=== PATIENT | male | born 1955 | race Caucasian/White ===

== ENCOUNTER 2020-10-12 07:17 | Day surgery (SDC) | payer OTHER ==
[2020-10-12] MEDS ORDERED: Ringers Lactate 1,000 ML IV ONE (07:51)
[2020-10-12] MEDS ORDERED: NA CHLORIDE 0.9% 1,000 ML ONE ×2 (07:55→11:13)
[2020-10-12] MEDS ORDERED: propofoL 200 MG/20 ML VIAL IV ONE (09:11)
[2020-10-12] MEDS ORDERED: MIDAZOLAM HCL 2 MG/2 ML INJ ONE (09:12)
[2020-10-12] MEDS ORDERED: LIDOCAINE 1% MPF 5 ML VIAL ONE (09:12)
--- NOTE | 2020-10-12 11:01 | ENDO RPT ---
[address], [address] COLONOSCOPY PROCEDURE REPORT EXAM DATE: 10/12/2020 PATIENT NAME: Yobani Washburn MR #: [id number] BIRTHDATE: 1955 ATTENDING: Mitch Duggan DR STATUS: outpatient ENTRY CLERK: Ricardo Fragoso CST and Pia James RN INDICATIONS: The patient is a 65 yr old Male here for a colonoscopy due to colon cancer screening PROCEDURE PERFORMED: Colonoscopy with biopsy - cold polypectomy MEDICATIONS: Per Anesthesia. ESTIMATED BLOOD LOSS: None CONSENT: The patient understands the risks and benefits of the procedure and understands that these risks include, but are not limited to: sedation, allergic reaction, infection, perforation and/or bleeding. Alternative means of evaluation and treatment include, among others: physical exam, x-rays, and/or surgical intervention. The patient elects to proceed with this endoscopic procedure. DESCRIPTION OF PROCEDURE: During intra-op preparation period all mechanical medical equipment was checked for proper function. Hand hygiene and appropriate measures for infection prevention was taken. Procedure, possible complications, alternatives including, but not limited to possibility of bleeding, perforation, tear, infection, sepsis, need for surgery, need for blood transfusion, were explained to the patient. After the risks, benefits and alternatives of the procedure were thoroughly explained, Informed consent was verified, confirmed and timeout was successfully executed by the treatment team. The patient was placed in the left lateral position. A digital rectal exam was performed and revealed an enlarged prostate, A digital rectal exam was performed and revealed internal hemorrhoids, and A digital rectal exam was performed and revealed external hemorrhoids. After appropriate level of anesthesia, the scope was passed. The EC-[id number] ([id number]) endoscope was introduced through the anus and advanced to the cecum, which was identified by both the appendix and ileocecal valve. The quality of the prep was fair. The instrument was then slowly withdrawn as the colon was fully examined. Scope withdrawal time was 12 minutes. COLON FINDINGS: Mild diverticulosis was noted in the sigmoid colon. No bleeding was noted from the diverticulosis. Two small smooth sessile polyps, ranging between 3-5mm in size, with friable surfaces were found in the sigmoid colon. A polypectomy was performed with cold forceps. The resection was complete, the polyp tissue was completely retrieved and sent to histology. Small internal and external hemorrhoids were found. Retroflexed views revealed no abnormalities. The scope was then completely withdrawn from the patient and the procedure terminated. ADVERSE EVENTS: There were no complications. IMPRESSIONS: 1. Mild diverticulosis was noted in the sigmoid colon 2. Two small sessile polyps, ranging between 3-5mm in size, were found in the sigmoid colon; polypectomy was performed with cold forceps 3. Small internal and external hemorrhoids RECOMMENDATIONS: 1. avoid NSAIDS for 2 weeks 2. await biopsy results 3. follow-up: office 2 week(s) 4. Monitor for any evidence of rectal bleeding. 5. hemorrhoidal hygiene 6. yearly hemoquant RECALL: for Colonoscopy, pending biopsy results. Mitch Duggan DR eSigned: Mitch Duggan DR 10/12/2020 11:01 AM cc: CPT CODES: ICD9 CODES: PATIENT NAME: Yobani Washburn MR#: [id number]
[2020-10-12 12:04] VITALS: TEMP 97
[2020-10-12 12:06] VITALS: BP 129/77; O2SAT 98
== END 2020-10-12 11:30 | disposition home or self-care (01) ==
LOC: OR 07:17
PROVIDERS: ATTEND Surgery
PROC: 0DBN8ZX Excision of Sigmoid Colon, Via Natural or Artificial Opening Endoscopic, Diagnostic (ICD-10-PCS; principal; 2020-10-12 08:30)
DX: K63.5 Polyp of colon (principal); K59.00 Constipation, unspecified; K64.4 Residual hemorrhoidal skin tags; K64.8 Other hemorrhoids; K57.30 Diverticulosis of large intestine without perforation or abscess without bleeding; Z20.822 Contact with and (suspected) exposure to COVID-19
CPT/HCPCS: 36415; 84132; 82947; 88305; 45380; U0003; J2704; J2250; J7120; J7030 ×2

== ENCOUNTER → 2023-08-08 | Emergency (ER) | payer OTHER ==
--- NOTE | 2023-08-08 08:51 | EDPHYS ---
Physician Documentation [facility] Name: Yobani Washburn Age: 67 yrs Sex: Male : 1955 Arrival Date: 08/08/2023 Time: 07:32 Bed 19 Private MD: ED Physician James Richmond HPI: 08/08 08:32 This 67 yrs old Male presents to ER via Ambulatory with complaints of Eye tari Problem. Historical: - Allergies: 07:47 Lyrica; hb - Home Meds: 07:48 metformin 1 Oral tab [Active]; metoprolol tartrate 100 mg Oral tab [Active]; hb - PMHx: 07:47 Diabetes - NIDDM; High Cholesterol; Hypertension; hb - Immunization history:: Adult Immunizations up to date. - Social history:: Smoking status: Patient denies any tobacco usage or history of. ROS: 08:41 Constitutional: Negative for fever, chills, and weight loss, ENT: Negative for injury, tari pain, and discharge, Neck: Negative for injury, pain, and swelling, Cardiovascular: Negative for chest pain, palpitations, and edema, Respiratory: Negative for shortness of breath, cough, wheezing, and pleuritic chest pain, Abdomen/GI: Negative for abdominal pain, nausea, vomiting, diarrhea, and constipation, Back: Negative for injury and pain, : Negative for injury, bleeding, discharge, and swelling, MS/Extremity: Negative for injury and deformity, Skin: Negative for injury, rash, and discoloration, Neuro: Negative for headache, weakness, numbness, tingling, and seizure, Psych: Negative for depression, anxiety, suicide ideation, homicidal ideation, and hallucinations, Allergy/Immunology: Negative for hives, rash, and allergies, Endocrine: Negative for neck swelling, polydipsia, polyuria, polyphagia, and marked weight changes, Hematologic/Lymphatic: Negative for swollen nodes, abnormal bleeding, and unusual bruising, 08:41 Eyes: Positive for pain, redness, swelling, of the outer aspect of conjuctiva of left eye, Exam: 08:41 Constitutional: This is a well developed, well nourished patient who is awake, alert, tari and in no acute distress. Head/Face: Normocephalic, atraumatic. ENT: Nares patent. No nasal discharge, no septal abnormalities noted. Tympanic membranes are normal and external auditory canals are clear. Oropharynx with no redness, swelling, or masses, exudates, or evidence of obstruction, uvula midline. Mucous membranes moist. Neck: Trachea midline, no thyromegaly or masses palpated, and no cervical lymphadenopathy. Supple, full range of motion without nuchal rigidity, or vertebral point tenderness. No Meningismus. Chest/axilla: Normal chest wall appearance and motion. Nontender with no deformity. No lesions are appreciated. Cardiovascular: Regular rate and rhythm with a normal S1 and S2. No gallops, murmurs, or rubs. Normal PMI, no JVD. No pulse deficits. Respiratory: Lungs have equal breath sounds bilaterally, clear to auscultation and percussion. No rales, rhonchi or wheezes noted. No increased work of breathing, no retractions or nasal flaring. Abdomen/GI: Soft, non-tender, with normal bowel sounds. No distension or tympany. No guarding or rebound. No evidence of tenderness throughout. Back: No spinal tenderness. No costovertebral tenderness. Full range of motion. Male : Normal genitalia with no discharge or lesions. Skin: Warm, dry with normal turgor. Normal color with no rashes, no lesions, and no evidence of cellulitis. MS/ Extremity: Pulses equal, no cyanosis. Neurovascular intact. Full, normal range of motion. Neuro: Awake and alert, GCS 15, oriented to person, place, time, and situation. Cranial nerves II-XII grossly intact. Motor strength 5/5 in all extremities. Sensory grossly intact. Cerebellar exam normal. Normal gait. Psych: Awake, alert, with orientation to person, place and time. Behavior, mood, and affect are within normal limits. 08:41 Eyes: Periorbital structures: appear normal, no acute changes, Pupils: no acute changes, equal, round, and reactive to light and accomodation, Extraocular movements: no acute changes, Conjunctiva: injected, Corneas: are normal, no evidence of abrasion, no foreign body, no acute changes, no evidence of abrasion, no foreign body, Sclera: swelling and edema, Anterior chamber: normal, Lids and lashes: appear normal, Visual tafoya: are intact, no acute changes, Vital Signs: 07:46 BP 149 / 76; Pulse 77; Resp 16; Temp 98.1; Pulse Ox 99% on R/A; Weight 90.72 kg (M); hb Height 5 ft. 9 in. ; Pain 8/10; 07:46 Body Mass Index 29.53 (90.72 kg, 175.26 cm) hb 07:46 Pain Scale: Adult hb MDM: 07:36 Patient medically screened. tari 08:41 Differential diagnosis: Corneal abrasion of Corneal ulcer of Foreign body in Acute tari iritis of Acute glaucoma in Ultraviolet keratitis in. Data reviewed: vital signs, nurses notes. Consideration of Admission/Observation Escalation of care including admission/observation considered. I considered the following discharge prescriptions or medication management in the emergency department Medications were administered in the Emergency Department. See MAR. Test considered but Not performed: Labs: no labs. Historians other than the Patient: patient well informed. Care significantly affected by the following chronic conditions: Diabetes, Hypertension, increase cholesterol. Administered Medications: No medications were administered Disposition Summary: 08/08/23 08:50 Discharge Ordered Notes: Location: Home tari Problem: new tari Symptoms: have improved tari Condition: Stable tari Diagnosis - Cough tari - Unspecified episcleritis, left eye tari - Type 2 diabetes mellitus with hyperosmolarity tari Followup: tari - With: Bernardo Maria MD - When: 2 - 3 days - Reason: Recheck today's complaints, Continuance of care, Re-evaluation by your physician Discharge Instructions: - Discharge Summary Sheet tari - Scleritis and Episcleritis tari - Cough, Adult tari - Type 2 Diabetes Mellitus, Self-Care, Adult tari Forms: - Medication Reconciliation Form [facility] - Thank You Letter [facility] - Antibiotic Education tari - Prescription Opioid Use tari - Patient Portal Instructions [facility] - Leadership Thank You Letter [facility] Prescriptions: - Tessalon Perles 100 mg Oral capsule - take 2 capsule ORAL route every 8 hours As needed; 30 capsule; Refills: 0, tari Product Selection Permitted - Zithromax Z-Alton 250 mg Oral Tablet - take 1 tablet ORAL route as directed for 5 days Day 1 - take two (2) tablets tari one time. Day 2, 3, 4 , 5 take one (1) tablet once daily.; 6 tablet; Refills: 0, Product Selection Permitted - Guaifenesin AC 10-100 mg/5 mL Oral liquid - take 10 milliliters ORAL route every 6 hours As needed; 160 milliliter; tari Refills: 0, Product Selection Permitted Signatures: James Richmond MD MD cha Baxter, Heather, RN RN hb Corrections: (The following items were deleted from the chart) 08:53 08:50 Anterior scleritis, left eye tari marc
--- NOTE | 2023-08-08 08:51 | ER ---
Nurse's Notes [facility] Name: Yobani Washburn Age: 67 yrs Sex: Male : 1955 Arrival Date: 08/08/2023 Time: 07:32 Bed 19 Private MD: Diagnosis: Cough;Unspecified episcleritis, left eye;Type 2 diabetes mellitus with hyperosmolarity Presentation: 08/08 07:46 Chief complaint: Left eye pain and redness x 6 weeks. Coronavirus screen: At this time, hb the client does not indicate any symptoms associated with coronavirus-19. Ebola Screen: No symptoms or risks identified at this time. Initial Sepsis Screen: Does the patient meet any 2 criteria? No. Patient's initial sepsis screen is negative. Does the patient have a suspected source of infection? No. Patient's initial sepsis screen is negative. Risk Assessment: Do you want to hurt yourself or someone else? Patient reports no desire to harm self or others. Onset of symptoms was June 2023. 07:46 Method Of Arrival: Ambulatory hb 07:46 Acuity: MALLORIE 4 hb Historical: - Allergies: 07:47 Lyrica; hb - Home Meds: 07:48 metformin 1 Oral tab [Active]; metoprolol tartrate 100 mg Oral tab [Active]; hb - PMHx: 07:47 Diabetes - NIDDM; High Cholesterol; Hypertension; hb - Immunization history:: Adult Immunizations up to date. - Social history:: Smoking status: Patient denies any tobacco usage or history of. Screenin:30 [facility] ED Fall Risk Assessment (Adult) Score/Fall Risk Level 0 - 2 = Low Risk hb Oriented to surroundings, Maintained a safe environment, Educated pt \T\ family on fall prevention, incl call for assistance when getting out of bed. Abuse screen: Denies threats or abuse. Denies injuries from another. Nutritional screening: No deficits noted. Tuberculosis screening: No symptoms or risk factors identified. Assessment: 08:30 General: Appears in no apparent distress. Behavior is calm, cooperative. Pain: Pain hb currently is 8 out of 10 on a pain scale. Neuro: Level of Consciousness is awake, alert, obeys commands, Oriented to person, place, time, situation. Cardiovascular: Patient's skin is warm and dry. Respiratory: Respiratory effort is even, unlabored, Respiratory pattern is regular, symmetrical. GI: No signs and/or symptoms were reported involving the gastrointestinal system. : No signs and/or symptoms were reported regarding the genitourinary system. EENT: Reports left eye pain and redness. Derm: Skin is pink, warm \T\ dry. Musculoskeletal: No signs and/or symptoms reported regarding the musculoskeletal system. Vital Signs: 07:46 BP 149 / 76; Pulse 77; Resp 16; Temp 98.1; Pulse Ox 99% on R/A; Weight 90.72 kg (M); hb Height 5 ft. 9 in. ; Pain 8/10; 07:46 Body Mass Index 29.53 (90.72 kg, 175.26 cm) hb 07:46 Pain Scale: Adult hb ED Course: 07:35 Patient arrived in ED. gm2 07:36 James Richmond MD is Attending Physician. tari 07:47 Triage completed. hb 08:09 Romana Cheng, RN is Primary Nurse. ko1 08:30 Patient has correct armband on for positive identification. Provided Education on: . hb 08:30 No provider procedures requiring assistance completed. Patient did not have IV access hb during this emergency room visit. 08:48 Arm band placed on. hb 08:49 Bernardo Maria MD is Referral Physician. tari Administered Medications: No medications were administered Medication: 08:30 VIS not applicable for this client. hb Outcome: 08:50 Discharge ordered by . tari 09:16 Patient left the ED. hb Signatures: James Richmond MD MD cha Baxter, Heather RN SIVA Romana Cheng, RN RN ko1 Rashmi Cameron gm2
[2023-08-08 09:29] VITALS: BP 149/76; TEMP 98.1; O2SAT 99
== END ==
LOC: ER 07:32
DX: H15.102 Unspecified episcleritis, left eye (principal); R05.9 Cough, unspecified; E11.00 Type 2 diabetes mellitus with hyperosmolarity without nonketotic hyperglycemic-hyperosmolar coma (NKHHC); I10 Essential (primary) hypertension; Z88.8 Allergy status to other drugs, medicaments and biological substances
CPT/HCPCS: 99281

== ENCOUNTER 2024-04-02 19:38 | Emergency (ER) | payer OTHER ==
[2024-04-02] MEDS ORDERED: FAMOTIDINE 20 MG/2 ML VIAL IV ONE (19:58)
[2024-04-02] MEDS ORDERED: NA CHLORIDE 0.9% 2,000 ML ONE (19:58)
[2024-04-02 20:23] LABS: Absolute Basophils 0.1 K/uL (0-0.5); Absolute Eosinophils 0.2 K/uL (0-0.5); Absolute Lymphocytes (CBC) 0.9 K/uL (0.7-4.9); Absolute Monocytes 1.5 K/uL (0.1-1.3); Absolute Neutrophil 14.2 K/uL (1.8-8.0); Basophils % 0.3 % (0-1.3); Eosinophils % 1.4 % (0-4.4); Hematocrit 36.6 % (39.6-49.0); Hemoglobin 12.2 g/dL (13.6-17.9); Lymphocytes % 5.4 % (15.3-44.8); MCH 29.1 pg (27.0-35.0); MCHC 33.4 g/dL (32.0-36.0); MCV 87.1 fL (80-100); MPV 7.4 fL (7.6-11.3); Monocytes % 8.7 % (3.3-12.3); Neutrophils % 84.2 % (41.7-73.7); Platelets 255 thou/uL (152-406); RBC Red Blood Cell Count 4.21 M/uL (4.33-5.43); Red Cell Distribution Width 14.6 % (12.1-15.2)
[2024-04-02 20:28] LABS: PT Prothrombin Time 13.2 SECONDS (9.4-12.5); Protime INR 1.18
--- NOTE | 2024-04-02 20:33 | RAD REPORT ---
EXAMINATION: ONE VIEW CHEST XR CLINICAL INDICATION: COUGH TECHNIQUE: Frontal chest projection is submitted. Examination is limited by patient positioning and t echnique. COMPARISON: 11/16/2015 FINDINGS: The lungs are well inflated and clear. The heart is normal in size. No displaced fractures identified . Sternotomy wires. IMPRESSION: No acute intrathoracic abnormalities.
[2024-04-02 20:41] LABS: Albumin 2.9 g/dL (3.4-5.0); Albumin/Globulin Ratio 0.9 (1.1-1.8); Anion Gap 9.6 mEq/L (5.0-15.0); Bilirubin Direct 0.3 mg/dL (0-0.2); Bilirubin Indirect, Calculated 0.6 mg/dL (0.2-0.8); Bilirubin Total 0.9 mg/dL (0.2-1.0); Globulin 3.1 g/dL (2.3-3.5); Potassium 4.6 mEq/L (3.5-5.1); Troponin High Sensitivity 7.6 pg/mL (<58.9)
[2024-04-02] MEDS ORDERED: Meropenem 1000 MG/VIAL IV ONE (21:05)
[2024-04-02] MEDS ORDERED: NA CHLORIDE 0.9% 250 ML ONE (21:05)
[2024-04-02] MEDS ORDERED: VANCOMYCIN 1 GM/VIAL ONE (21:05)
[2024-04-02] MEDS ORDERED: NA CHLORIDE 0.9% 100 ML ONE (21:06)
--- NOTE | 2024-04-02 21:12 | ER ---
Nurse's Notes [facility] Name: Yobani Washburn Age: 68 yrs Sex: Male : 1955 Arrival Date: 04/02/2024 Time: 19:38 Bed 2 Private MD: Diagnosis: Weakness;Elevated white blood cell count;Type 2 diabetes mellitus with hyperglycemia;Low back pain-SP FUSION L4-5;Hypotension, unspecified;Other retention of urine;UTI/ Urinary tract infection, site not specified-AIR IN BLADDER;Acute kidney failure, unspecified Presentation: 04/02 19:51 Chief complaint: Patient's son or daughter states: DC from [facility] post lg3 spine SX today. got home and took norco 7.5 and tizanidine 4mg and became lethargic. EMS administered 1mg Narcan. Pt AAOx4 on arrival. Coronavirus screen: Client denies travel out of the [place] in the last 14 days. At this time, the client does not indicate any symptoms associated with coronavirus-19. Ebola Screen: No symptoms or risks identified at this time. Initial Sepsis Screen: Does the patient meet any 2 criteria? No. Patient's initial sepsis screen is negative. Does the patient have a suspected source of infection? No. Patient's initial sepsis screen is negative. Risk Assessment: Do you want to hurt yourself or someone else? Patient reports no desire to harm self or others. Onset of symptoms was April 02, 2024. 19:51 Method Of Arrival: EMS: [facility] 3 19:51 Acuity: MALLORIE 3 lg3 Triage Assessment: 19:55 General: Appears in no apparent distress. comfortable, Behavior is calm, cooperative. lg3 Pain: Denies pain. EENT: No deficits noted. No signs and/or symptoms were reported regarding the EENT system. Neuro: No deficits noted. Walsh Agitation-Sedation Scale (RASS): 0 - Alert and Calm Level of Consciousness is awake, alert, obeys commands, Oriented to person, place, time, situation. Cardiovascular: No deficits noted. Denies chest pain, shortness of breath, Capillary refill < 3 seconds Clubbing of nail beds is absent JVD is absent Patient's skin is warm and dry. Respiratory: No deficits noted. Airway is patent Respiratory effort is even, unlabored, Respiratory pattern is regular, symmetrical. GI: No deficits noted. No signs and/or symptoms were reported involving the gastrointestinal system. : No deficits noted. No signs and/or symptoms were reported regarding the genitourinary system. Derm: Skin is intact, is healthy with good turgor, Skin is dry, Skin is pale, Skin temperature is warm. Musculoskeletal: No deficits noted. Circulation, motion, and sensation intact. Range of motion: intact in all extremities. Historical: - Allergies: 19:55 Lyrica; lg3 - PMHx: 19:55 Diabetes - NIDDM; High Cholesterol; Hypertension; spine (Hypertension); lg3 - PSHx: 19:55 triple bipass (Hypertension); spinal (Hypertension); lg3 - Immunization history:: Adult Immunizations up to date. - Infectious Disease History:: Denies. - Social history:: Smoking status: Patient denies any tobacco usage or history of. Patient/guardian denies using alcohol, street drugs. - Family history:: not pertinent. Screenin:26 [facility] ED Fall Risk Assessment (Adult) History of falling in the last 3 months, cm10 including since admission No falls in past 3 months (0 pts) Confusion or Disorientation No (0 pts) Intoxicated or Sedated No (0 pts) Impaired Gait Yes (1 pt) Mobility Assist Device Used Yes (1 pt) Altered Elimination No (0 pt) Score/Fall Risk Level 0 - 2 = Low Risk Oriented to surroundings, Maintained a safe environment, Hourly rounding (assess needs \T\ fall precautionary measures) done. Abuse screen: Denies threats or abuse. Denies injuries from another. Nutritional screening: No deficits noted. Tuberculosis screening: No symptoms or risk factors identified. Assessment: 20:26 General: Appears in no apparent distress. comfortable, Behavior is calm, cooperative. cm10 Neuro: No deficits noted. Level of Consciousness is awake, alert, obeys commands, Oriented to person, place, time, situation, Appropriate for age. Respiratory: No deficits noted. Airway is patent Respiratory effort is even, unlabored, Respiratory pattern is regular, symmetrical. 22:00 Reassessment: Patient appears in no apparent distress at this time. No changes from cp4 previously documented assessment. Patient and/or family updated on plan of care and expected duration. Pain level reassessed. Patient is alert, oriented x 3, equal unlabored respirations, skin warm/dry/pink. 23:00 Reassessment: Patient appears in no apparent distress at this time. Patient and/or cp4 family updated on plan of care and expected duration. Pain level reassessed. Patient is alert, oriented x 3, equal unlabored respirations, skin warm/dry/pink. 04/03 00:00 Reassessment: Patient appears in no apparent distress at this time. Patient and/or cp4 family updated on plan of care and expected duration. Pain level reassessed. Patient is alert, oriented x 3, equal unlabored respirations, skin warm/dry/pink. 01:00 Reassessment: Patient appears in no apparent distress at this time. Patient and/or cp4 family updated on plan of care and expected duration. Pain level reassessed. Patient is alert, oriented x 3, equal unlabored respirations, skin warm/dry/pink. 01:17 General: Romana- [phone]. lg3 02:00 Reassessment: Patient appears in no apparent distress at this time. Patient and/or cp4 family updated on plan of care and expected duration. Pain level reassessed. Patient is alert, oriented x 3, equal unlabored respirations, skin warm/dry/pink. 03:00 Reassessment: Patient appears in no apparent distress at this time. Patient and/or cp4 family updated on plan of care and expected duration. Pain level reassessed. Patient is alert, oriented x 3, equal unlabored respirations, skin warm/dry/pink. Vital Signs: 04/02 19:51 BP 93 / 48; Pulse 82; Resp 17 S; Temp 98.2(O); Pulse Ox 98% on R/A; Weight 80.74 kg; lg3 Height 5 ft. 9 in. (R); Pain 0/10; 21:23 BP 110 / 58; Pulse 79; Resp 18; Pulse Ox 99% ; cm10 22:31 BP 116 / 62; Pulse 86; Resp 16; Pulse Ox 96% ; cp4 23:30 BP 115 / 61; Pulse 83; Resp 18; Pulse Ox 96% ; cp4 04/03 00:00 BP 117 / 61; Pulse 82; Resp 18; Pulse Ox 96% ; cp4 01:00 BP 128 / 66; Pulse 83; Resp 18; Pulse Ox 96% ; cp4 02:00 BP 124 / 67; Pulse 77; Resp 18; Pulse Ox 96% ; cp4 03:22 BP 119 / 68; Pulse 81; Resp 18; Pulse Ox 96% ; cp4 04/02 19:51 Body Mass Index 26.29 (80.74 kg, 175.26 cm) lg3 04/02 19:51 Pain Scale: Adult 3 ED Course: 04/02 19:42 Patient arrived in ED. vk 19:45 James Richmond MD is Attending Physician. tari 19:55 Triage completed. lg3 19:55 Arm band placed on right wrist. lg3 20:10 Inserted saline lock: 20 gauge in right antecubital area, using aseptic technique. cm10 Blood collected. Flushed with 10 mL NS Maintain EMS IV. Dressing intact. Good blood return noted. Site clean \T\ dry. Gauge \T\ site: 18g left forearm. 20:10 Initial lab(s) drawn, by me, sent to lab. First set of blood cultures drawn by me. cm10 20:19 EKG done, by ED staff, reviewed by James Richmond MD. oe 20:26 Patient has correct armband on for positive identification. Bed in low position. Call cm10 light in reach. Side rails up X2. Provided Education on: ER process and procedures.. Client placed on continuous cardiac and pulse oximetry monitoring. NIBP monitoring applied. monitoring and evaluation advisor on. 20:29 XRAY Chest (1 view) In Process Unspecified. EDMS 20:[address] via stretcher. cm10 21:08 initiated transfer with [facility] spoke with Amy . vk 21:14 CT Chest Abdomen Pelvis W/O Contrast In Process Unspecified. EDMS 21:15 Patient moved back from CT. cm10 21:18 Second set of blood cultures drawn by me. cm10 21:18 T\T\S collected, blood band applied to patient. cm10 21:53 Jensen cath inserted, using sterile technique, 16 Fr., by me, balloon inflated, to cm10 gravity drainage, urine specimen collected. Patient tolerated well. 22:02 called [facility] for patient placement spoke with tanja stated that they are waiting assistant golf professional vk back from Dr. Nova. 22:08 Sharda Vazquez is Primary Nurse. cp4 22:43 spoke with Amy from [facility] asked to fax all clinical's stated they are waiting for bed. vk 23:55 patient not accepted to [facility] NOE Villegas. vk 04/03 00:16 initiated transfer with [facility] spoke with Isabella. vk 01:31 declined patient transfer per Isabella. vk 02:00 initiated transfer with [facility] lisa spoke with Emilie. vk 02:28 Patient was accepted to [facility] Lisa to [id number] Danita dyson. vk 03:00 initiated transport with EMS spoke with xiao CERDA 15/20 mins. vk 03:13 EMS picked up patient at [id number]. vk 03:25 No provider procedures requiring assistance completed. Patient transferred, IV remains cp4 in place. Administered Medications: 04/02 20:20 Drug: Famotidine IVP 20 mg IVP once; dilute with 10 mL 0.9% NaCl; give over 2 minutes cm10 Route: IVP; Site: right antecubital; 21:09 Follow up: Response: No adverse reaction cm10 20:21 Drug: NS 0.9% IV 1000 ml IV at 1 bolus Per protocol; to be given as a bolus over 60 cm10 minutes Route: IV; Rate: 1 bolus; Site: right antecubital; 22:03 Follow up: Response: No adverse reaction; IV Status: Completed infusion; IV Intake: cm10 1000ml 20:21 Drug: NS 0.9% IV 1000 ml IV at 1 bolus Per protocol; to be given as a bolus over 60 cm10 minutes Route: IV; Rate: 1 bolus; Site: right antecubital; 22:03 Follow up: Response: No adverse reaction; IV Status: Completed infusion; IV Intake: cm10 1000ml 21:22 Drug: Meropenem IV 1 grams IV at per protocol once; (mix in NS 100 mL) Route: IV; Rate: cm10 per protocol; Site: right antecubital; 22:27 Follow up: IV Status: Completed infusion cp4 21:52 Drug: Viscous Lidocaine Mucous Membrane Liquid (4 %) 5 ml Mucous Membrane once; to cm10 bedside Route: Mucous Membrane; 22:27 Drug: vancoMYCIN IVPB 1 grams IVPB once over 2 hrs Route: IVPB; Infused Over: 2 hrs; cp4 Site: right antecubital; 04/03 00:49 Follow up: Response: No adverse reaction; IV Status: Completed infusion cp4 Medication: 04/02 20:26 VIS not applicable for this client. cm10 Intake: 22:03 IV: 1000ml; Total: 1000ml. cm10 22:03 IV: 1000ml; Total: 2000ml. cm10 Outcome: 21:11 ER care complete, transfer ordered by . tari 04/03 03:24 Transferred by ground EMS Transfer form completed. X-rays sent w/ patient. Note: [facility] cp4 [place] Condition: stable Instructed on the need for transfer, 03:28 Patient left the ED. cp4 Signatures: Dispatcher [employer] EDJames Richards MD MD cha Espinosa, Orlando oe Able, Lacie RN RN lg3 Daina River RN RN cm10 Sharda Vazquez cp4 Yovana Sears Corrections: (The following items were deleted from the chart) 02:55 00:00 BP 128 / 66; Pulse 83bpm; Resp 18bpm; Pulse Ox 96%; cp4 cp4 03:24 02:37 Reassessment: cp4 cp4
--- NOTE | 2024-04-02 21:12 | EDPHYS ---
Physician Documentation [facility] Name: Yobani Washburn Age: 68 yrs Sex: Male : 1955 Arrival Date: 04/02/2024 Time: 19:38 Bed 2 Private MD: ED Physician James Richmond HPI: 04/02 19:54 This 68 yrs old Male presents to ER via Unassigned with complaints of weak, tari shaking, sp back surgery. 19:54 The patient presents with pain that is acute, and tenderness, sp fusion. The symptoms tari are located in the low back, lumbar area. Onset: The symptoms/episode began/occurred just prior to arrival. The pain does not radiate. Associated signs and symptoms: Pertinent positives: weakness. The problem was sustained from unknown cause. Modifying factors: The patient symptoms are alleviated by nothing, the patient symptoms are aggravated by movement. took pain pill, mr got weakness. Severity of symptoms: At their worst the symptoms were moderate in the emergency department the symptoms are unchanged. Historical: - Allergies: 19:55 Lyrica; lg3 - PMHx: 19:55 Diabetes - NIDDM; High Cholesterol; Hypertension; spine (Hypertension); lg3 - PSHx: 19:55 triple bipass (Hypertension); spinal (Hypertension); lg3 - Immunization history:: Adult Immunizations up to date. - Infectious Disease History:: Denies. - Social history:: Smoking status: Patient denies any tobacco usage or history of. Patient/guardian denies using alcohol, street drugs. - Family history:: not pertinent. ROS: 19:54 Constitutional: Negative for fever, chills, and weight loss, Eyes: Negative for injury, tari pain, redness, and discharge, ENT: Negative for injury, pain, and discharge, Neck: Negative for injury, pain, and swelling, Cardiovascular: Negative for chest pain, palpitations, and edema, Respiratory: Negative for shortness of breath, cough, wheezing, and pleuritic chest pain, Abdomen/GI: Negative for abdominal pain, nausea, vomiting, diarrhea, and constipation, : Negative for injury, bleeding, discharge, and swelling, MS/Extremity: Negative for injury and deformity, Skin: Negative for injury, rash, and discoloration, Neuro: Negative for headache, weakness, numbness, tingling, and seizure, Psych: Negative for depression, anxiety, suicide ideation, homicidal ideation, and hallucinations, Allergy/Immunology: Negative for hives, rash, and allergies, Endocrine: Negative for neck swelling, polydipsia, polyuria, polyphagia, and marked weight changes, Hematologic/Lymphatic: Negative for swollen nodes, abnormal bleeding, and unusual bruising, 19:54 Back: Positive for injury or acute deformity, decreased range of motion, pain at rest, pain with movement, of the lumbar area, Exam: 19:54 Constitutional: This is a well developed, well nourished patient who is awake, alert, tari and in no acute distress. Head/Face: Normocephalic, atraumatic. Eyes: Pupils equal round and reactive to light, extra-ocular motions intact. Lids and lashes normal. Conjunctiva and sclera are non-icteric and not injected. Cornea within normal limits. Periorbital areas with no swelling, redness, or edema. ENT: Nares patent. No nasal discharge, no septal abnormalities noted. Tympanic membranes are normal and external auditory canals are clear. Oropharynx with no redness, swelling, or masses, exudates, or evidence of obstruction, uvula midline. Mucous membranes moist. Neck: Trachea midline, no thyromegaly or masses palpated, and no cervical lymphadenopathy. Supple, full range of motion without nuchal rigidity, or vertebral point tenderness. No Meningismus. Chest/axilla: Normal chest wall appearance and motion. Nontender with no deformity. No lesions are appreciated. Cardiovascular: Regular rate and rhythm with a normal S1 and S2. No gallops, murmurs, or rubs. Normal PMI, no JVD. No pulse deficits. Respiratory: Lungs have equal breath sounds bilaterally, clear to auscultation and percussion. No rales, rhonchi or wheezes noted. No increased work of breathing, no retractions or nasal flaring. Abdomen/GI: Soft, non-tender, with normal bowel sounds. No distension or tympany. No guarding or rebound. No evidence of tenderness throughout. Male : Normal genitalia with no discharge or lesions. Skin: Warm, dry with normal turgor. Normal color with no rashes, no lesions, and no evidence of cellulitis. MS/ Extremity: Pulses equal, no cyanosis. Neurovascular intact. Full, normal range of motion. Psych: Awake, alert, with orientation to person, place and time. Behavior, mood, and affect are within normal limits. 19:54 Back: pain, that is moderate, of the lumbar area, ROM is painful, normal spinal alignment noted, CVA tenderness, is absent, 19:54 Neuro: Orientation: is normal, appropriate for stated age, no acute changes, Mentation: is normal, Memory: is normal, Cranial nerves: grossly normal, is grossly normal based on the patient's age, no acute changes, Cerebellar function: is grossly normal, 20:23 ECG was reviewed by the Attending Physician. [facility] Vital Signs: 19:51 BP 93 / 48; Pulse 82; Resp 17 S; Temp 98.2(O); Pulse Ox 98% on R/A; Weight 80.74 kg; lg3 Height 5 ft. 9 in. (R); Pain 0/10; 21:23 BP 110 / 58; Pulse 79; Resp 18; Pulse Ox 99% ; cm10 22:31 BP 116 / 62; Pulse 86; Resp 16; Pulse Ox 96% ; cp4 23:30 BP 115 / 61; Pulse 83; Resp 18; Pulse Ox 96% ; cp4 04/03 00:00 BP 117 / 61; Pulse 82; Resp 18; Pulse Ox 96% ; cp4 01:00 BP 128 / 66; Pulse 83; Resp 18; Pulse Ox 96% ; cp4 02:00 BP 124 / 67; Pulse 77; Resp 18; Pulse Ox 96% ; cp4 03:22 BP 119 / 68; Pulse 81; Resp 18; Pulse Ox 96% ; cp4 04/02 19:51 Body Mass Index 26.29 (80.74 kg, 175.26 cm) lg3 04/02 19:51 Pain Scale: Adult lg3 MDM: 04/02 19:45 Patient medically screened. tari 19:59 Differential diagnosis: chronic back pain, Fatigue Fracture Hydronephrosis Perforated tari Ulcer Pyelonephritis ruptured disc, spinal injury, sprain, Ureterolithiasis. Differential Diagnosis altered mental status, sepsis, flu. Data reviewed: vital signs, nurses notes, EMS record, lab test result(s), EKG, radiologic studies, CT scan, plain films. Consideration of Admission/Observation Escalation of care including admission/observation considered. I considered the following discharge prescriptions or medication management in the emergency department Medications were administered in the Emergency Department. See MAR. Independent interpretation of the following test(s) in the Emergency Department EKG: See my EKG interpretation above. Test considered but Not performed: Ultrasound no abd usg. 04/02 19:53 Order name: Basic Metabolic Panel; Complete Time: 20:44 [facility] 04/02 19:53 Order name: CBC with Diff; Complete Time: 20:27 [facility] 04/02 19:53 Order name: LFT's; Complete Time: 20:44 [facility] 04/02 19:53 Order name: Magnesium; Complete Time: 20:44 [facility] 04/02 19:53 Order name: NT PRO-BNP; Complete Time: 20:44 [facility] 04/02 19:53 Order name: PT-INR; Complete Time: 20:44 [facility] 04/02 19:53 Order name: Troponin HS; Complete Time: 20:44 [facility] 04/02 19:53 Order name: Blood Culture Adult (2) [facility] 04/02 19:53 Order name: Lactate w/ 2H reflex if indic.; Complete Time: 20:44 [facility] 04/02 19:53 Order name: Urinalysis w/ reflexes; Complete Time: 22:22 [facility] 04/02 20:05 Order name: Type And Screen; Complete Time: 22:22 kj2 04/02 22:11 Order name: ABO/RH no charge; Complete Time: 22:22 EDMS 04/02 22:43 Order name: Ghost Lactate-NO COLLECT Timer; Complete Time: 23:27 EDOH 04/02 19:53 Order name: XRAY Chest (1 view); Complete Time: 20:44 [facility] 04/02 20:47 Order name: CT Chest Abdomen Pelvis W/O Contrast; Complete Time: 22:22 [facility] 04/02 19:53 Order name: EKG; Complete Time: 19:54 [facility] 04/02 19:53 Order name: Cardiac monitoring; Complete Time: 20:20 [facility] 04/02 19:53 Order name: EKG - Nurse/Tech; Complete Time: 20:20 [facility] 04/02 19:53 Order name: IV Saline Lock; Complete Time: 20:20 [facility] 04/02 19:53 Order name: Labs collected and sent; Complete Time: 20:20 [facility] 04/02 19:53 Order name: O2 Per Protocol; Complete Time: 20:20 [facility] 04/02 19:53 Order name: O2 Sat Monitoring; Complete Time: 20:20 [facility] 04/02 21:08 Order name: Mikey; Complete Time: 21:52 tari EC:23 Rate is 83 beats/min. Rhythm is regular. QRS [place] is Normal. OR interval is normal. QRS tari interval is normal. QT interval is normal. No Q waves. T waves are Normal. No ST changes noted. Clinical impression: NSR w/ Non-specific ST/T Changes and No evidence of ischemia. Interpreted by me. Reviewed by me. Administered Medications: 20:20 Drug: Famotidine IVP 20 mg IVP once; dilute with 10 mL 0.9% NaCl; give over 2 minutes cm10 Route: IVP; Site: right antecubital; 21:09 Follow up: Response: No adverse reaction cm10 20:21 Drug: NS 0.9% IV 1000 ml IV at 1 bolus Per protocol; to be given as a bolus over 60 cm10 minutes Route: IV; Rate: 1 bolus; Site: right antecubital; 22:03 Follow up: Response: No adverse reaction; IV Status: Completed infusion; IV Intake: cm10 1000ml 20:21 Drug: NS 0.9% IV 1000 ml IV at 1 bolus Per protocol; to be given as a bolus over 60 cm10 minutes Route: IV; Rate: 1 bolus; Site: right antecubital; 22:03 Follow up: Response: No adverse reaction; IV Status: Completed infusion; IV Intake: cm10 1000ml 21:22 Drug: Meropenem IV 1 grams IV at per protocol once; (mix in NS 100 mL) Route: IV; Rate: cm10 per protocol; Site: right antecubital; 22:27 Follow up: IV Status: Completed infusion cp4 21:52 Drug: Viscous Lidocaine Mucous Membrane Liquid (4 %) 5 ml Mucous Membrane once; to cm10 bedside Route: Mucous Membrane; 22:27 Drug: vancoMYCIN IVPB 1 grams IVPB once over 2 hrs Route: IVPB; Infused Over: 2 hrs; cp4 Site: right antecubital; 04/03 00:49 Follow up: Response: No adverse reaction; IV Status: Completed infusion cp4 Disposition Summary: 04/02/24 21:11 Transfer Ordered Notes: Transfer Location: [facility] tari Reason: Higher level of care tari Condition: Fair tari Problem: new tari Symptoms: have improved tari Accepting Physician: yasmine ALMONTEH(04/03/24 03:28) cp4 Diagnosis - Weakness tari - Elevated white blood cell count tari - Type 2 diabetes mellitus with hyperglycemia tari - Low back pain - SP FUSION L4-5 tari - Hypotension, unspecified tari - Other retention of urine tari - UTI/ Urinary tract infection, site not specified - AIR IN BLADDER atri - Acute kidney failure, unspecified tari Forms: - Medication Reconciliation Form tari - SBAR form tari Signatures: Dispatcher [employer] EDMS James Richmond MD MD cha Able, Lacie RN RN lg3 Daina River RN RN cm10 Sharda Vazquez cp4 Corrections: (The following items were deleted from the chart) 04/02 19:54 19:54 BASIC METABOLIC PANEL+C.LAB.BRZ ordered. EDMS EDMS 19:54 19:54 CBC+H.LAB.BRZ ordered. EDMS EDMS 19:54 19:54 HEPATIC FUNCTION+C.LAB.BRZ ordered. EDMS EDMS 19:54 19:54 MAGNESIUM+C.LAB.BRZ ordered. EDMS EDMS 19:54 19:54 PROBNP+C.LAB.BRZ ordered. EDMS EDMS 19:54 19:54 PROTIME (+INR)+COAG.LAB.BRZ ordered. EDMS EDMS 19:54 19:54 Troponin High Sensitivity+C.LAB.BRZ ordered. EDMS EDMS 19:54 19:54 BLOOD CULTURE*+BA.LAB.BRZ ordered. EDMS EDMS 19:54 19:54 LACTATE+C.LAB.BRZ ordered. EDMS EDMS 19:54 19:54 Urinalysis+U.LAB.BRZ ordered. EDMS EDMS 19:54 19:54 Chest For PE Angio+CT.RAD.BRZ ordered. EDMS EDMS 19:54 19:54 Abdomen Pelvis W Con+CT.RAD.BRZ ordered. EDMS EDMS 20:48 20:48 Chest Abdomen Pelvis Wo Con+CT.RAD.BRZ ordered. EDMS EDMS 21:12 21:11 to ALEJANDRINA tari tari 21:38 21:[address] [facility] tari tari 23:45 21:38 to ALEJANDRINA tari tari 04/03 03:28 04/02 23:45 to ALEJANDRINA tari cp4
--- NOTE | 2024-04-02 21:23 | RAD REPORT ---
EXAM: CT CHEST, ABDOMEN AND PELVIS WITHOUT CONTRAST CLINICAL INDICATION: Abdominal distention;Dyspnea;Pain TECHNIQUE: CT chest, abdomen and pelvis was performed without contrast, as per department protocol. A xial, sagittal and coronal reconstructions were obtained. One or more of the following dose reduction techniques were used: Automated exposure control, adjustment of the mA and/or kV according to patient size, and/or iterative reconstruction. Unless otherwise specified, incidental findings do not require dedicated imaging follow-up. Examination is limited by the lack of intravenous contrast material. COMPARISON: 11/16/2015 FINDINGS: LUNGS: Mild subsegmental atelectasis is present in both posterior lung bases. Sternotomy wires. PLEURA: No pleural effusion. No pneumothorax. MEDIASTINUM AND LYMPH NODES: No mediastinal mass or fluid collection. Normal size mediastinal, hilar, and axillary lymph nodes. OSSEOUS STRUCTURES AND CHEST WALL: Intact. LIVER: Normal in size and contour. No focal lesion or biliary dilatation. Cholelithiasis. PANCREAS: No mass, ductal dilation, or heavenly-pancreatic fluid. SPLEEN: Normal size. No focal lesion. ADRENALS: Normal; no mass. KIDNEYS: Normal size and contour. No hydronephrosis. Bilateral renal cysts are present. URINARY BLADDER: Area is present in the bladder. GASTROINTESTINAL TRACT: No bowel obstruction, free air, significant free fluid or abscess. APPENDIX: Appendix not visualized, but no inflammatory changes in region of appendix. LYMPH NODES: No lymphadenopathy. MUSCULOSKELETAL: Postsurgical changes are present at L3-L4 with hardware in place. Mild anterolisthes is is seen of L3 on 4 measuring 5 mm. OTHER: IMPRESSION: No acute or significant abnormalities seen in the chest, abdomen or pelvis. Postsurgical lumbar spine with hardware in place. Cholelithiasis.
[2024-04-02] MEDS ORDERED: LIDOCAINE HCL JELLY 2% 6 ML SYRINGE TOP ONE (21:32)
[2024-04-02 22:11] LABS: Specific Gravity 1.008 (1.005-1.030); Sqamous Epithelial None Seen /HPF (None Seen); Urine Bacteria <20 /HPF (<20); Urine Bilirubin NEGATIVE (Negative); Urine Blood Negative (Negative); Urine Clarity Turbid (Clear); Urine Color Light-Yellow (Yellow); Urine Crystals Unidentified Few /HPF (None Seen); Urine Culture Reflex Order NOT NEEDED; Urine Glucose NEGATIVE (Negative); Urine Ketones NEGATIVE (Negative); Urine Microscopic Reflex YN ORDER UMIC; Urine Mucus Slight /HPF (None Seen); Urine Nitrite NEGATIVE (Negative); Urine Protein 1+ (Negative); Urine RBC <5 /HPF (None Seen); Urine Urobilinogen Normal (Normal); Urine WBC <5 /HPF (<5); Urine WBC Clump Rare /HPF (None Seen); Urine Yeast (Budding) Trace /HPF (None Seen)
[2024-04-03 06:49] VITALS: TEMP 98.2
[2024-04-03 06:52] VITALS: O2SAT 96
[2024-04-03 07:00] VITALS: BP 119/68
== END 2024-04-03 03:28 | disposition short-term general hospital (02) ==
LOC: ER 19:38
DX: R53.1 Weakness (principal); D72.829 Elevated white blood cell count, unspecified; M54.50 Low back pain, unspecified; Z98.890 Other specified postprocedural states; E11.65 Type 2 diabetes mellitus with hyperglycemia; I95.9 Hypotension, unspecified; R33.8 Other retention of urine; N39.0 Urinary tract infection, site not specified; N17.9 Acute kidney failure, unspecified; I10 Essential (primary) hypertension; Z95.1 Presence of aortocoronary bypass graft
CPT/HCPCS: 93005; 87040 ×2; 85025; 81001; 80048; 36415; 86900; 83735; 86850; 85610; 86901; 80076; 83605; 84484; 83880; 71250; 74176; 71045; J2185; J7050; J7030

== ENCOUNTER 2024-06-16 07:21 | Emergency (ER) | payer OTHER ==
--- NOTE | 2024-06-16 07:38 | EDPHYS ---
Physician Documentation [facility] – [place], [place] Name: Yobani Washburn Age: 68 yrs Sex: Male : 1955 Arrival Date: 06/16/2024 Time: 07:21 Bed IW1 Private MD: ED Physician Kenyon Ardon HPI: 06/16 07:40 This 68 yrs old Male presents to ER via Ambulatory with complaints of Ear ec2 Pain - Right. 07:40 Patient arrives today for evaluation of right ear pain. Reports that he had gotten ec2 retained foreign body in there and subsequently has been washing it out. States there was some soap flecks. No other concerns. Historical: - Allergies: 07:31 Lyrica; iw - PMHx: 07:31 High Cholesterol; Diabetes - NIDDM; Hypertension; iw - PSHx: 07:31 Spinal; back; iw 07:32 CABG; iw - Immunization history:: Adult Immunizations up to date. - Infectious Disease History:: Denies. - Social history:: Smoking status: Patient reports use of chewing tobacco. ROS: 07:40 Constitutional: as per hpi ec2 Exam: 07:40 Constitutional: GEN: NAD Head: atraumatic Eyes: EOMI Ears: External ears are normal. ec2 Right ear with otitis externa CV: regular rate LUNGS: no respiratory distress ABD: non-distended SKIN: no evidence of rashes MSK: no evidence of trauma Vital Signs: 07:33 BP 111 / 75; Pulse 70; Resp 16; Temp 97.6; Pulse Ox 100% ; Weight 80.29 kg; Height 5 iw ft. 9 in. ; 07:33 Body Mass Index 26.14 (80.29 kg, 175.26 cm) iw MDM: 07:31 Medical Screening Exam initiated ec2 07:40 Data reviewed: vital signs, nurses notes. ED course: Patient arrives today for right ec2 ear pain. Examination yields otitis externa. With that the patient on Augmentin and ofloxacin.. Administered Medications: 07:55 Drug: Amoxicillin-Clavulanate PO 875 mg PO once Route: PO; iw 08:00 Follow up: Response: No adverse reaction iw 07:55 Not Given (Physician Discretion): ciprodexdrops 4 drops Otic once iw Disposition Summary: 06/16/24 07:37 Discharge Ordered Notes: Location: Home ec2 Condition: Stable ec2 Diagnosis - Acute suppurative otitis media ec2 - Other otitis externa, right ear ec2 Followup: ec2 - With: Private Physician - When: - Reason: Re-evaluation by your physician Discharge Instructions: - Discharge Summary Sheet ec2 - Otitis Externa, [id number] ec2 Forms: - Medication Reconciliation Form ec2 - Antibiotic Education ec2 - Prescription Opioid Use ec2 - Patient Portal Instructions ec2 - Leadership Thank You Letter ec2 Prescriptions: - ofloxacin 0.3 % Otic drops - instill 10 drop OTIC route every 24 hours; 5 milliliter; Refills: 0, Product ec2 Selection Permitted - Augmentin 875-125 mg Oral Tablet - take 1 tablet ORAL route every 12 hours for 10 days; 20 tablet; Refills: 0, ec2 Product Selection Permitted Signatures: Sherry Rodriguez RN RN iw Kenyon Ardon MD MD ec2 Corrections: (The following items were deleted from the chart) 07:33 07:31 PSHx: triple bipass (en); iw 07:33 07:31 PSHx: CABG (triple bipass); [facility]
--- NOTE | 2024-06-16 07:38 | ER ---
Nurse's Notes [facility] [place] Name: Yobani Washburn Age: 68 yrs Sex: Male : 1955 Arrival Date: 06/16/2024 Time: 07:21 Bed IW1 Private MD: Diagnosis: Acute suppurative otitis media;Other otitis externa, right ear Presentation: 06/16 07:27 Chief complaint: Patient states: right ear pain since Thursday after a piece of soap got iw stuck in right ear, he has been digging at it his ear and now it's swollen and tender and his hearing is muffled. Coronavirus screen: At this time, the client does not indicate any symptoms associated with coronavirus-19. Ebola Screen: No symptoms or risks identified at this time. Initial Sepsis Screen: Does the patient meet any 2 criteria? No. Patient's initial sepsis screen is negative. Does the patient have a suspected source of infection? No. Patient's initial sepsis screen is negative. Risk Assessment: Do you want to hurt yourself or someone else? Patient reports no desire to harm self or others. Onset of symptoms was June 14, 2024. 07:27 Method Of Arrival: Ambulatory iw 07:27 Acuity: [place] 4 iw Historical: - Allergies: 07:31 Lyrica; iw - PMHx: 07:31 High Cholesterol; Diabetes - NIDDM; Hypertension; iw - PSHx: 07:31 Spinal; back; iw 07:32 CABG; iw - Immunization history:: Adult Immunizations up to date. - Infectious Disease History:: Denies. - Social history:: Smoking status: Patient reports use of chewing tobacco. Screenin:34 [facility] ED Fall Risk Assessment (Adult) History of falling in the last 3 months, iw including since admission No falls in past 3 months (0 pts) Confusion or Disorientation No (0 pts) Intoxicated or Sedated No (0 pts) Impaired Gait No (0 pts) Mobility Assist Device Used No (0 pt) Altered Elimination No (0 pt) Score/Fall Risk Level 0 - 2 = Low Risk Oriented to surroundings, Maintained a safe environment. Abuse screen: Denies threats or abuse. Nutritional screening: No deficits noted. Tuberculosis screening: No symptoms or risk factors identified. Assessment: 07:34 General: Appears in no apparent distress. Behavior is calm, cooperative. Pain: iw Complains of pain in right ear. Neuro: Level of Consciousness is awake, alert, obeys commands, Moves all extremities. Full function. Cardiovascular: Patient's skin is warm and dry. Respiratory: Respiratory effort is even, unlabored, Respiratory pattern is regular, symmetrical. EENT: Reports pain in right ear. Derm: Skin is intact, is healthy with good turgor. Musculoskeletal: Range of motion: intact in all extremities. Vital Signs: 07:33 BP 111 / 75; Pulse 70; Resp 16; Temp 97.6; Pulse Ox 100% ; Weight 80.29 kg; Height 5 iw ft. 9 in. ; 07:33 Body Mass Index 26.14 (80.29 kg, 175.26 cm) iw ED Course: 07:23 Patient arrived in ED. ra3 07:27 Kenyon Ardon MD is Attending Physician. ec2 07:31 Triage completed. iw 07:33 Sherry Rodriguez RN is Primary Nurse. iw 07:33 Arm band placed on. iw 07:50 Patient has correct armband on for positive identification. iw 07:54 No provider procedures requiring assistance completed. Patient did not have IV access iw during this emergency room visit. Administered Medications: 07:55 Drug: Amoxicillin-Clavulanate PO 875 mg PO once Route: PO; iw 08:00 Follow up: Response: No adverse reaction iw 07:55 Not Given (Physician Discretion): ciprodexdrops 4 drops Otic once iw Medication: 07:34 VIS not applicable for this client. iw Outcome: 07:37 Discharge ordered by . ec2 07:54 Discharged to home ambulatory, iw 07:54 Condition: good 07:54 Discharge instructions given to patient, Instructed on discharge instructions, follow up and referral plans. Demonstrated understanding of instructions, follow-up care, medications, Prescriptions given X 2, 07:55 Patient left the ED. iw Signatures: Sherry Rodriguez RN RN iw Kenyon Ardon MD MD ec2 Shyanne Blackwell ra3 Corrections: (The following items were deleted from the chart) 07:33 07:31 PSHx: triple bipass (en); iw iw 07:33 07:31 PSHx: CABG (triple bipass); iw iw
[2024-06-16] MEDS ORDERED: AMOX/K CLAV 875 MG TAB ONE (07:42)
[2024-06-16 08:00] VITALS: BP 111/75; TEMP 97.6; O2SAT 100
== END 2024-06-16 07:55 | disposition home or self-care (01) ==
LOC: ER 07:21
DX: H66.001 Acute suppurative otitis media without spontaneous rupture of ear drum, right ear (principal); H60.8X1 Other otitis externa, right ear
CPT/HCPCS: 99283

== ENCOUNTER 2024-10-07 08:12 | Day surgery (SDC) | payer OTHER ==
[2024-10-06 10:10] LABS: Absolute Eosinophils 0.2 K/uL (0-0.5); Absolute Monocytes 0.7 K/uL (0.1-1.3); Absolute Neutrophil 6.8 K/uL (1.8-8.0); Basophils % 0.5 % (0-1.3); Eosinophils % 2.4 % (0-4.4); Hematocrit 42.8 % (39.6-49.0); Hemoglobin 14.8 g/dL (13.6-17.9); Lymphocytes % 20.4 % (15.3-44.8); MCH 29.5 pg (27.0-35.0); MCHC 34.5 g/dL (32.0-36.0); MCV 85.6 fL (80-100); MPV 7.7 fL (7.6-11.3); Monocytes % 6.7 % (3.3-12.3); Nucleated Red Blood Cells % 0.1 % (0-0); Platelets 252 thou/uL (152-406); Red Cell Distribution Width 14.2 % (12.1-15.2)
[2024-10-06 10:23] LABS: PT Prothrombin Time 12.2 SECONDS (10-13.0); PTT, Activated Partial Thromb 30.9 SECONDS (27.2-37.4); Protime INR 1.07
[2024-10-06 11:13] LABS: Anion Gap 9.5 mEq/L (5.0-15.0)
[2024-10-06 11:14] LABS: Potassium 4.5 mEq/L (3.5-5.1)
[2024-10-07] MEDS ORDERED: NA CHLORIDE 0.9% 1,000 ML ONE (08:26)
[2024-10-07] MEDS ORDERED: propofoL 200 MG/20 ML VIAL IV ONE (09:30)
[2024-10-07 11:55] VITALS: O2SAT 100
[2024-10-07 11:56] VITALS: BP 120/77; TEMP 97.3
--- NOTE | 2024-10-12 13:02 | EKG ---
Test Date: 2024-10-06 Test Time: 08:32:15 Department Administrator: SOLITARIO MEASUREMENT RESULTS: Intervals: Rate: 65 MI: 218 QRSD: 92 QT: 422 QTc: 438 [place]: P: 78 MI: 218 QRS: 67 T: 71 INTERPRETIVE STATEMENTS: Sinus rhythm with 1st degree AV block Otherwise normal ECG Compared to ECG 04/02/2024 20:14:06 First degree AV block now present Atrial premature complex(es) no longer present Electronically Signed On 10-12-24 12:45:20 CDT by Eric Brock
== END 2024-10-07 11:08 | disposition home or self-care (01) ==
LOC: OR 08:12
PROVIDERS: ATTEND Surgery
PROC: 0DBP8ZX Excision of Rectum, Via Natural or Artificial Opening Endoscopic, Diagnostic (ICD-10-PCS; principal; 2024-10-07 09:45)
DX: Z12.11 Encounter for screening for malignant neoplasm of colon (principal); Z86.0100 Personal history of colon polyps, unspecified; N42.9 Disorder of prostate, unspecified; K51.20 Ulcerative (chronic) proctitis without complications; K64.8 Other hemorrhoids; T18.4XXA Foreign body in colon, initial encounter; K57.30 Diverticulosis of large intestine without perforation or abscess without bleeding
CPT/HCPCS: 93005; 85025; 80048; 36415; 85610; 82947; 88305; 85730; 45380; J2704; J7030